=== PATIENT | male | born 1985 | race Two or more races ===

== ENCOUNTER 2020-11-12 06:24 | Emergency (ER) | payer MEDICAID ==
[~2020-11-12] VITALS: Ht 170.2 cm; Wt 90.7 kg
[2020-11-12] MEDS ORDERED: MORPHINE SULFATE INJ 4 MG/ML DISP.SYRIN ONE (06:46)
[2020-11-12] MEDS ORDERED: ONDANSETRON HCL/PF 4 MG/2 ML VIAL ONE (06:46)
--- NOTE | 2020-11-12 06:50 | NUR ---
PATIENT CAME TO THE ER BED 9 C/O MEDIAL ABDOMINAL PAIN RADIATING TO THE LOWER BACK SINCE YESTERDAY AT 2200 ON AND OFF. PATIENT STATES THAT HE WENT TO [facility] AT 0400, BUT WAS WITING IN THE WAITING ROOM FOR A LONG TIME AND STOPPED WAITING. PATIENT STATES THAT HE TOOK PEPTO BISMO, BUT VOMITED IT UP. PATIENT IS AAOX4. NO SOB .BREATHING EVENLY AND UNLABORED ON ROOM AIR. CONNECTED TO THE ASSURANCE AUDITOR.
[2020-11-12] MEDS: MORPHINE SULFATE INJ 2 MG/ML DISP.SYRIN IV ONE (06:55)
[2020-11-12] MEDS: ONDANSETRON HCL/PF 4 MG/2 ML VIAL IVP ONE (06:55)
[2020-11-12] MEDS: IV NS 0.9% 1,000 ML BAG IV ONE (06:55)
--- NOTE | 2020-11-12 07:03 | NUR ---
PATIENT'S BLOOD SENT TO THE LAB.
[2020-11-12 07:39] LABS: BASOPHILS % (AUTO) 0.1 % (0.0-2.0); EOSINOPHILS % (AUTO) 0.1 % (0.0-6.0); HEMATOCRIT 46 % (39-51); HEMOGLOBIN 15.4 g/dL (13.5-17.5); LYMPHOCYTES # (AUTO) 0.7 /CMM (0.8-4.8); LYMPHOCYTES % (AUTO) 6.4 % (20.0-44.0); MEAN CORPUSCULAR HGB CONC 33 g/dl (31.0-36.0); MEAN CORPUSCULAR VOLUME 82 fL (80-96); MONOCYTES # (AUTO) 0.2 /CMM (0.1-1.30); MONOCYTES % (AUTO) 2.3 % (2.0-12.0); NEUTROPHILS # (AUTO) 9.5 /CMM (1.8-8.9); NEUTROPHILS % (AUTO) 91.1 % (43.0-81.0); PLATELET COUNT (AUTO) 392 /CMM (150-450); RED BLOOD CELL COUNT(AUTO) 5.69 MIL/uL (4.5-6.0); WHITE BLOOD COUNT (AUTO) 10.5 K/uL (4.3-11.0)
--- NOTE | 2020-11-12 07:43 | NUR ---
REPORT GIVEN TO STEFF CARLTON FOR [facility].
[2020-11-12 07:47] LABS: CALCIUM, SERUM 9.2 mg/dL (8.5-10.1); CARBON DIOXIDE 26 mmol/L (21-32); CHLORIDE 100 mmol/L (98-107); CREATININE 1.1 mg/dL (0.6-1.3); GLUCOSE 144 mg/dL (74-106); POTASSIUM 4.2 mmol/L (3.5-5.1); SODIUM SERUM 139 mmol/L (136-145); UREA NITROGEN, BLOOD 16 mg/dL (7-18)
[2020-11-12] MEDS ORDERED: KETOROLAC TROMETHAMINE 15 MG/ML VIAL ONE (07:48)
[2020-11-12] MEDS: KETOROLAC TROMETHAMINE INJ 30 MG/ML VIAL IV ONE (07:52)
[2020-11-12 08:05] LABS: ALANINE AMINOTRANSFERASE 64 U/L (12-78); ALBUMIN 4.3 g/dL (3.4-5.0); ALKALINE PHOSPHATASE 72 U/L (46-116); ASPARTATE AMINOTRANSFERASE 20 U/L (15-37); BILIRUBIN,DIRECT 0.1 mg/dL (0.0-0.2); BILIRUBIN,TOTAL 0.4 mg/dL (0.2-1.0); LIPASE 66 U/L (73-393); TOTAL PROTEIN, SERUM 8.1 g/dL (6.4-8.2)
[2020-11-12] MEDS ORDERED: IV NS 0.9% 250 ML IV ONE (08:13)
[2020-11-12] MEDS ORDERED: IOHEXOL-300 100 ML VIAL IV ONE (08:13)
--- NOTE | 2020-11-12 09:10 | NUR ---
Patient awake alert stated pain 5/10 no nausea and vomit continue to monitor .
[2020-11-12 09:41] VITALS: BP 142/66
--- NOTE | 2020-11-12 09:41 | NUR ---
Patient discharged to home in stable condition. Written and verbal after care instructions given. Patient verbalizes understanding of instruction.IV removed. Catheter intact and site benign. Pressure and 4x4 applied to site. No bleeding noted.
== END 2020-11-12 09:42 | disposition home or self-care (01) ==
LOC: ER 06:28
DX: K80.50 Calculus of bile duct without cholangitis or cholecystitis without obstruction (principal); R11.2 Nausea with vomiting, unspecified
CPT/HCPCS: 36415; 71045; 74177; 76705; 80048; 80076; 83605; 83690; 84484; 85025; 96361; 96374; 96375; 99285; J1885; J2270; J2405; J7030; J7050; Q9967